=== PATIENT | male | born 1965 | race Asian ===

== ENCOUNTER 2018-02-15 23:26 | Inpatient (IN) | payer SELFPAY ==
[2018-02-16] MEDS ORDERED: Thiamine IV* 100 MG, Folic Acid IV* 1 MG, Multiple Vitamin IV ADULT* 10 ML in NS 0.9% 1... IV ONE (00:27)
[2018-02-16] MEDS ORDERED: LORazepam INJ* 2 MG/ML 1 ML VIAL IV PUSH ONE ×2 (00:27→02:40)
[2018-02-16] MEDS ORDERED: NS 0.9% 1000 ML* 1,000 ML IV ONE (00:27)
[2018-02-16] MEDS ORDERED: Tetan/Diph/Pertus SYR(Tdap)* 0.5 ML SYR(BOOSTRIX) use SYR IM ONE (00:29)
--- NOTE | 2018-02-16 00:30 | ED ---
Altered Mental Status - HPI Summary HPI Summary: The pt is a 52 year old M presenting to the ED with a chief complaint of altered mental status. The pt only knows his name. Per family, he is going through alcohol withdrawal as of 2 weeks ago and has been confused for 1 week now. He has drank every day for 14+ years. No vomiting or medications. The pt has foot pain. - History Of Current Complaint Chief Complaint: EDAltMentalStatus Stated Complaint: ALCOHOL WITHDRAWL Time Seen by Provider: 02/16/18 00:02 Hx Obtained From: Patient Hx From Patient Unobtainable Due To: Altered Mental Status Onset/Duration: Still Present, Gradually Timing: Constant, Lasting Days - 1 wk ago Severity Initially: Moderate Severity Currently: Moderate Character: Confusion Aggravating Factor(s): Other - alcohol withdrawal Alleviating Factor(s): Nothing - Allergies/Home Medications Allergies/Adverse Reactions: Allergies Allergy/AdvReac Type Severity Reaction Status Date / Time No Known Allergies Allergy Verified 02/15/18 23:54 PMH/Surg Hx/FS Hx/Imm Hx Previously Healthy: Yes Endocrine/Hematology History: Denies: Hx Diabetes Cardiovascular History: Denies: Hx Hypertension Infectious Disease History: Unable to Obtain/Confirm Infectious Disease History: Denies: Traveled Outside the [place] in Last 30 Days - Family History Known Family History: Negative: Renal Disease - Social History Alcohol Use: alcohol abuse Alcohol Amount: every day for 14+ yrs (since 2003) Substance Use Type: Reports: None Review of Systems Negative: Fever Neurological: Other - confusion, tremors All Other Systems Reviewed And Are Negative: Yes Physical Exam - Summary Physical Exam Summary: VITAL SIGNS: Reviewed. GENERAL: Patient is a well-developed and nourished male who is lying comfortable in the stretcher. Patient is not in any acute respiratory distress HEAD AND FACE: No signs of trauma. No ecchymosis, hematomas or skull depressions. No sinus tenderness. EYES: PERRLA, EOMI x 2, No injected conjunctiva, no nystagmus. EARS: Hearing grossly intact. Ear canals and tympanic membranes are within normal limits. MOUTH: Oropharynx within normal limits. NECK: Supple, trachea is midline, no adenopathy, no JVD, no carotid bruit, no c- spine tenderness, neck with full ROM. CHEST: Symmetric, no tenderness at palpation LUNGS: Clear to auscultation bilaterally. No wheezing or crackles. CVS: Regular rate and rhythm, S1 and S2 present, no murmurs or gallops appreciated. ABDOMEN: Soft, non-tender. No signs of distention. No rebound no guarding, and no masses palpated. Bowel sounds are normal. EXTREMITIES: FROM in all major joints, no edema, no cyanosis or clubbing. Laceration over distal R second toe which seems more than 24 hours old. NEURO: The pt only knows his name and has tremors of the outstretched hands. SKIN: Dry and warm. The pt has clubbing of his bilateral fingernails. GCS: 15 Triage Information Reviewed: Yes Vital Signs On Initial Exam: Initial Vitals Temp Pulse Resp BP Pulse Ox 99.5 F 95 20 120/75 98 02/15/18 23:45 02/15/18 23:45 02/15/18 23:45 02/15/18 23:45 02/15/18 23:45 Vital Signs Reviewed: Yes Diagnostics - Vital Signs Vital Signs Temp Pulse Resp BP Pulse Ox 02/15/18 23:45 99.5 F 95 20 120/75 98 - Laboratory Result Diagrams: 02/16/18 00:36 02/16/18 00:36 Lab Statement: Any lab studies that have been ordered have been reviewed, and results considered in the medical decision making process. - CT Brain CT CT Interpretation Completed By: Radiologist Summary of CT Findings: No acute intracranial findings. ED physician has reviewed this report. - EKG 0053 Cardiac Rate: NL - 65bpm EKG Rhythm: Sinus Rhythm ST Segment: Non-Specific Ectopy: None Altered Mental Statu Course/Dx - Course Course Of Treatment: The pt is a 52 y/o M presenting to the ED with AMS. Per family, he drank every day for 14+ years and stopped cold turkey about 2 wks ago. His confusion/withdrawal symptoms have been going on for about 1 wk. - Diagnoses Provider Diagnoses: Alcohol withdrawal Discharge - Sign-Out/Discharge Documenting (check all that apply): Patient Departure - Discharge Plan Condition: Critical Disposition: ADMITTED TO [facility] - Billing Disposition and Condition Condition: CRITICAL Disposition: Admitted to [facility] - Attestation Statements Document Initiated by Scribe: Yes Documenting Scribe: Tamela Mendoza Provider For Whom Scribe is Documenting (Include Credential): Hieu Wynn MD. Scribe Attestation: Tamela Garcia, scribed for Hieu Wynn MD. on 02/16/18 at 0610. Scribe Documentation Reviewed: Yes Provider Attestation: The documentation as recorded by the [email or web address] accurately reflects the service I personally performed and the decisions made by Hieu porter MD. Consult Consult: 0130 - Contacted hospitalist about pt admission to [facility]. Pt will be admitted with a diagnosis of alcohol withdrawal.
[2018-02-16 00:42] LABS: ABS Basophils 0.1 10^3/ul (0-0.2); ABS Eosinophils 0.2 10^3/ul (0-0.6); ABS Lymphocytes 1.6 10^3/ul (1.0-4.8); ABS Monocytes 0.6 10^3/ul (0-0.8); ABS Neutrophils 3.1 10^3/ul (1.5-7.7); ABS Nucleated RBC 0 10^3/ul; Eosinophil % 2.8 % (0-6); Hematocrit 31 % (42-52); Hemoglobin 10.2 g/dl (14.0-18.0); Lymphocyte % 28.9 % (25-47); Mean Corpuscular HGB Conc 33 g/dl (31-36); Mean Corpuscular Hemoglobin 28 pg (27-31); Mean Corpuscular Volume 85 fL (80-94); Mean Platelet Volume 9.2 fL (7.4-10.4); Nucleated Red Blood Cells % 0.1; Platelet Count 106 10^3/ul (150-450); Red Blood Count 3.61 10^6/ul (4.00-5.40); Red Cell Distribution Width 13 % (10.5-15); White Blood Count 5.5 10^3/ul (3.5-10.8)
[2018-02-16 00:58] LABS: EGFR Non-African American 104.5 (>60)
[2018-02-16] MEDS ORDERED: Magnesium Sulfate 2 GM IV* 2 GM/50 ML BAG IVPB ONE ×2 (01:41→13:35)
[2018-02-16] MEDS ORDERED: Potassium Chloride LIQUID* 20 MEQ PACKET PO ONE (01:41)
[2018-02-16] MEDS ORDERED: Thiamine IV* 100 MG/ML 2 ML VIAL IM ONE (02:27)
--- NOTE | 2018-02-16 02:37 | ADMNOTE ---
Subjective Date of Service: 02/16/18 Interval History: code status full this is admission h/p source info sister both pt and sister are poor historians hpi this is a 52 yr old male with hx of chronic etoh dep about 24 oz cans times 10-12 cans daily was brought in by family due to worsening mental status for the past 2.5 days. pt has been drinking this amount since age 18 but decided to quit etoh one week ago. this food writer could not get any further hx from pt due to altered ms but sister could not further give pt's hx. pt was given multiple doses of benzo for his etoh withdraw but still very agitated --- > he uriated on the the floor despite of benzo. temp wrist restraint was placed due to agitation. prasedex drip was started due to his agitation after benzo was given. pt got heavy doses of benzo but still withdrawing from etoh phx etoh dep quantity as in hpi cig smoker 1 ppd pshx denied social cig etoh as above no ivda fhx sister denied Review of Systems - Measurements Intake and Output: Intake and Output Last 24 Hours 02/13/18 02/14/18 02/15/18 02/16/18 06:59 06:59 06:59 06:59 Weight 120 lb - Review of Systems General Comments: unable due to ams and agitation Objective Active Medications: Folic Acid (Folvite Tab*) 1 mg PO DAILY [facility] Heparin Sodium (Porcine) (Heparin Vial(*)) 5,000 units SUBCUT Q8HR [facility] Magnesium Sulfate (Magnesium Sulfate 2 Gm Iv*) 2 gm in 50 mls @ 50 mls/hr IVPB ONCE ONE Stop: 02/16/18 02:40 Last Admin: 02/16/18 02:00 Dose: 50 mls/hr Sodium Chloride (Ns 0.9% 1000 Ml*) 1,000 mls @ 125 mls/hr IV PER RATE [facility] Lorazepam (Ativan Inj*) 0 - 2.5 mg IV PUSH .PER [facility] PROTOCOL [facility]; Protocol Multivitamins/Minerals (Theragran/Minerals Tab*) 1 tab PO DAILY [facility] Thiamine HCl (Vitamin B-1 Tab*) 100 mg PO DAILY [facility] Vital Signs - 8 hr 02/15/18 02/16/18 23:45 01:38 Temperature 99.5 F Pulse Rate 95 Respiratory 20 22 Rate Blood Pressure 120/75 (mmHg) O2 Sat by Pulse 98 Oximetry Oxygen Devices in Use Now: Nasal Cannula Appearance: very agitated Eyes: No Scleral Icterus, PERRLA Ears/Nose/Mouth/Throat: - - oral mucosa dry unable to visulized oral cavity Neck: NL Appearance and Movements; NL JVP, Trachea Midline, No Thyroid Enlargement, Masses Respiratory: Symmetrical Chest Expansion and Respiratory Effort, Clear to Auscultation Cardiovascular: NL Sounds; No Murmurs; No JVD Abdominal: NL Sounds; No Tenderness; No Distention Skin: No Rash or Ulcers Neurological: - - agitation later sedated with prasedex and benzo unable to appreciate Result Diagrams: 02/16/18 06:17 02/16/18 00:36 EKG Data: ns no acute st t changes Assess/Plan/Problems-Billing Assessment: this is a 52 yr old male with hx of etoh dep presented to er after he quit etoh one week ago with acute ms change his intial wbc was neg as well as his head ct - Patient Problems (1) Altered mental state Current Visit: Yes Status: Acute Code(s): R41.82 - ALTERED MENTAL STATUS, UNSPECIFIED SNOMED Code(s): 236099614 Comment: could be due to etoh withdraw but ammonia is elevatd will admit to icu for prasedex drip (2) ETOH abuse Current Visit: Yes Status: Acute Code(s): F10.10 - ALCOHOL ABUSE, UNCOMPLICATED SNOMED Code(s): 10711548 Comment: [facility] protocol thiamine (3) Withdrawal symptoms, alcohol Current Visit: Yes Status: Acute Code(s): F10.239 - ALCOHOL DEPENDENCE WITH WITHDRAWAL, UNSPECIFIED SNOMED Code(s): 844610176 Comment: [facility] protocol with ativan + prasedex drip icu consult in am (4) Cigarette smoker Current Visit: Yes Status: Acute Code(s): F17.210 - NICOTINE DEPENDENCE, CIGARETTES, UNCOMPLICATED SNOMED Code(s): 35203443 Comment: supportive care (5) Increased ammonia level Current Visit: Yes Status: Acute Code(s): R79.89 - OTHER SPECIFIED ABNORMAL FINDINGS OF BLOOD CHEMISTRY SNOMED Code(s): 282636025 (6) Chronic anemia Current Visit: Yes Status: Acute Code(s): D64.9 - ANEMIA, UNSPECIFIED SNOMED Code(s): 178946684 Comment: consider lacutlose either ng vs per rectum (7) Anemia, chronic disease Current Visit: Yes Status: Acute Code(s): D63.8 - ANEMIA IN OTHER CHRONIC DISEASES CLASSIFIED ELSEWHERE SNOMED Code(s): 728751121 Comment: stable no aucte st t elevation moniter (8) Electrolyte abnormality Current Visit: Yes Status: Acute Code(s): E87.8 - OTH DISORDERS OF ELECTROLYTE AND FLUID BALANCE, NEC SNOMED Code(s): 582246479 Comment: supplemen as tolerated
[2018-02-16] MEDS ORDERED: LORazepam INJ* 2 MG/ML 1 ML VIAL ONE (02:40)
[2018-02-16] MEDS ORDERED: Diazepam SYRINGE* 5 MG/ML 2 ML SYRINGE (10 MG total) IV ONE (02:40)
[2018-02-16] MEDS ORDERED: Diazepam INJ (NF) 5 MG/ML 10 ML VIAL (50 MG TOTAL) IV ONE (03:30)
[2018-02-16] MEDS: NS 0.9% 1000 ML* 1,000 ML IV SCH ×3 (03:59→13:48)
[2018-02-16] MEDS ORDERED: Dexmedetomidine* 400 MCG in NS 0.9% 100 ML* 96 ML IVPB SCH (04:00)
[2018-02-16] MEDS: LORazepam INJ* 2 MG/ML 1 ML VIAL IV PUSH SCH ×3 (04:34→10:06)
[2018-02-16] MEDS: Heparin VIAL(*) 5000 UNITS/ML VIAL (FIVE THOUSAND) SUBCUT SCH ×3 (06:08→23:52)
[2018-02-16 06:36] LABS: ABS Basophils 0.1 10^3/ul (0-0.2); ABS Eosinophils 0.1 10^3/ul (0-0.6); ABS Lymphocytes 1.6 10^3/ul (1.0-4.8); ABS Monocytes 0.5 10^3/ul (0-0.8); ABS Neutrophils 2.4 10^3/ul (1.5-7.7); ABS Nucleated RBC 0 10^3/ul; Eosinophil % 2.8 % (0-6); Hematocrit 35 % (42-52); Hemoglobin 11.3 g/dl (14.0-18.0); Lymphocyte % 33.1 % (25-47); Mean Corpuscular HGB Conc 32 g/dl (31-36); Mean Corpuscular Hemoglobin 28 pg (27-31); Mean Corpuscular Volume 86 fL (80-94); Mean Platelet Volume 9.5 fL (7.4-10.4); Nucleated Red Blood Cells % 0.1; Platelet Count 113 10^3/ul (150-450); Red Blood Count 4.13 10^6/ul (4.00-5.40); Red Cell Distribution Width 13 % (10.5-15); White Blood Count 4.8 10^3/ul (3.5-10.8)
[2018-02-16] MEDS ORDERED: Atropine SYRINGE* 0.1 MG/ML 10 ML SYRINGE (1 MG) ONE (07:29)
[2018-02-16] MEDS ORDERED: Thiamine IV 100 MG, Folic Acid IV* 1 MG, Multiple Vitamin IV ADULT* 10 ML in D5NS 0.9% ... IV ONE (10:30)
[2018-02-16] MEDS: Folic Acid TAB* 1 MG PO SCH (10:35)
[2018-02-16] MEDS: Thiamine TAB* 100 MG TAB PO SCH (10:35)
[2018-02-16] MEDS: KCL 20 MEQ/100 ML IVPREMIX* 20 MEQ/100 ML BAG IV SCH ×2 (10:35→12:54)
[2018-02-16] MEDS: Multivitamins/Minerals TAB PO SCH (10:35)
--- NOTE | 2018-02-16 22:15 | CONS ---
CONSULTATION REPORT: DATE OF CONSULT: 02/16/18 REQUESTING PHYSICIAN: Shaneka Lyons MD REASON FOR CONSULT: Alcohol withdrawal and bradycardia. HISTORY OF PRESENT ILLNESS: The patient is unable to provide any history at this time. He has significant history of chronic alcohol usage, has been drinking about 24-ounce cans 10 to 12 cans daily per family. He has been found to be having altered mental status for past 2 to 3 days prior to evaluation. He was brought in by the family for evaluation of mental status changes. The patient is not able to provide any history at this time. He has not seen physician for a very long time. He returned from [facility] few years ago, was found to be intoxicated in the flight and was momentarily held in [place] where he landed first and was treated for ETOH withdrawal. He was also found to have cirrhosis and varices at that time. He did not have any primary care evaluations since that time. He continues to drink regularly. The patient was significantly agitated in the emergency room. He was given benzos with no benefit. He was subsequently placed on Precedex and was brought in to the ICU. The patient was noted to have episodes of bradycardia and sinus pauses while in the ICU. Precedex was stopped. The patient's mental status improved. He has remained more cooperative. He has been receiving Ativan as per [facility] protocol. The patient also noted to have hyponatremia and hypokalemia, which were repleted. He was also noted to low magnesium. He was given thiamine folate IV while in the ICU. Chest x-ray performed in the ICU was personally reviewed by me, no acute airspace opacities noted. PAST MEDICAL HISTORY: Chronic ETOH use, chronic tobacco abuse. PAST SURGICAL HISTORY: Denied. FAMILY HISTORY: Reviewed. Noncontributory to current complaint. SOCIAL HISTORY: Alcohol and ETOH abuse. No IV drug abuse. REVIEW OF SYSTEMS: Unable to obtain given patient's acute condition. PHYSICAL EXAM: Vital Signs: Temperature 97.3, pulse 57 beats per minute, respiratory rate 14 per minute. O2 sat 98% on room air, blood pressure 127/84. HEENT: Pupils equal and reactive to light. Mucous membranes moist. Lungs: Diminished air entry bilaterally. No wheezes. Cardiovascular: S1, S2 present. Bradycardic. Abdomen: Soft, nontender, nondistended. Bowel sounds present. Extremities: Normal range of motion. DIAGNOSTIC STUDIES/LAB DATA: WBC count 4.8, hemoglobin 11.3, hematocrit 35, platelet count 113. Sodium 134, potassium 3.1, chloride 102, bicarb 25, BUN 16 , creatinine 0.7, ammonia elevated at 71. Chest x-ray- As described in HPI EKG was personally reviewed, evidence of sinus rhythm with sinus pauses in between. IMPRESSION AND RECOMMENDATIONS: 52-year-old male with chronic alcohol use admitted with withdrawal. 1. Acute alcohol withdrawal. 2. Sinus pauses secondary to Precedex. 3. Altered mental status. 4. Hypokalemia, hypomagnesemia and hyponatremia secondary to poor intake and dehydration. The patient with slightly improved mental status. Family at bedside. The patient received thiamine folate and multivitamins. He is receiving Ativan [facility]. Precedex is discontinued. Cardiology was consulted for recommendations. Continue with [facility] protocol. Monitor closely for alcohol withdrawal. The patient is stable to be transferred to regular medical floor. Discussed with bedside RN, family. Discussed with Dr. Nunez. [id number]/CPS #: [id number] RANDAL
--- NOTE | 2018-02-16 22:49 | CONS ---
CARDIOLOGY CONSULTATION: DATE OF CONSULT: 02/16/18. REFERRAL PROVIDER: Dr. Villagomez. REASON FOR CARDIOLOGY CONSULTATION: Sinus pauses. HISTORY OF PRESENT ILLNESS: The patient is currently sedated so I am unable to obtain a meaningful history. He has alcohol dependence and was apparently brought to the hospital with alcohol withdrawal after he had stopped drinking alcohol one week ago. He was placed on benzodiazepines, but because of continued agitation, he was placed on Precedex. He developed some sinus pauses less than 2 seconds, so the Precedex had been appropriately stopped. No symptoms reported. PAST MEDICAL HISTORY: Significant for alcoholism and the patient has apparently been drinking large amounts of alcohol since the age of 18. He also smokes one pack of cigarettes per day. MEDICATIONS: No outpatient medications reported. ALLERGIES: None reported; however, I would list PRECEDEX as an allergy given his predeliction for developing first-degree AV block on his baseline EKG and sinus pauses on telemetry. Currently he is in sinus rhythm. FAMILY HISTORY: Unable to obtain as the patient is quite sedated. SOCIAL HISTORY: Unable to obtain as the patient is quite sedated other than as above. REVIEW OF SYSTEMS: Unable to obtain as the patient is quite sedated. PHYSICAL EXAM: On general exam, he is in no acute distress and his sedated. Height 5 feet 4 inches, weight 121 pounds. Pulse is 57, blood pressure 127/84, O2 saturation 98. HEENT: Shows the cranium is normocephalic and atraumatic. He has moist mucosal membranes. Neck veins are not distended. There are no carotid bruits. Visible skin warm and perfused. No significant kyphoscoliosis on recumbent back exam. Lungs are clear to auscultation anteriorly. No wheezes or rales. Cardiac Exam: S1, S2. Regular rate. No significant murmurs , rubs or gallops. PMI is not displaced. Abdomen: Soft, nondistended, appears benign. Extremities: Without significant edema. Pulses appear grossly intact. DIAGNOSTIC STUDIES/LAB DATA: A 12-led EKG reviewed performed on 02/16/18, which shows sinus rhythm at 77 beats per minute with LA, first-degree AV block, right ely axis. When compared to prior EKG completed 02/16/18 at 00:53 i.e. roughly 7 hours prior, PVC, sinus rhythm with early repolarization pattern noted , but no first degree AV block. Note; the patient had Precedex in the interim. Sodium 134, potassium 3.1, chloride 102, bicarbonate 25, BUN 16, creatinine 0.78. Magnesium 1.8. ALT 76, AST 110, ammonia 71, CK 745, troponin 0.01 followed by 0, TSH 0.91. IMPRESSION: Mr. Lurdes Willams is a 52-year-old gentleman admitted with alcohol withdrawal. He developed sinus pauses, less than 2 seconds, which are not significant as well as first-degree AV block due to his prior Precedex drip use. I agree with Precedex discontinuation. RECOMMENDATIONS: 1. Agree with discontinuing Precedex and avoid AV luis manuel blockade agents. 2. There is no indication for pacemaker. No further cardiac evaluation needed at this time. 3. Keep magnesium greater than or equal to 2, potassium greater than or equal to 4. 4. Other management as per Critical Care Medicine Service. I have discussed the case with Dr. Villagomez. Dr. Villagomez, many thanks for asking me to participate in cardiovascular consultative care of Mr. Lurdes Willams. Please do not hesitate to contact me if you have any questions or concerns regarding the patient's cardiovascular consultative care. [id number]/[facility] #: [id number] MTDD
[2018-02-17] MEDS: Heparin VIAL(*) 5000 UNITS/ML VIAL (FIVE THOUSAND) SUBCUT SCH ×3 (07:00→21:45)
[2018-02-17] MEDS: Thiamine TAB* 100 MG TAB PO SCH (09:16)
[2018-02-17] MEDS: Multivitamins/Minerals TAB PO SCH (09:16)
[2018-02-17] MEDS: Folic Acid TAB* 1 MG PO SCH (09:16)
--- NOTE | 2018-02-17 15:49 | PN ---
Subjective Date of Service: 02/17/18 Interval History: Pt seen and examined. Meds and labs reviewed. CC: N/A ROS: Denied CAO/dizziness, F/C, N/V, CP, SOB, increased cough, sputum production , abd pain, diarrhea, constipation, dysuria, myalgias, arthralgias, throat pain , and new skin lesions. The rest of the 14 point ROS are unremarkable. PHYSICAL EXAM: GEN APPEARANCE: Awake, not in acute distress HEENT: NC/AT, PERRLA, moist oral mucosa, (-) throat erythema NECK: Soft, supple, (-) cervical LAD, (-)JVD HEART: S1S2 WNL, RRR, No MRG CHEST: CTA, BL, GAE, No W/R/R ABD: Soft, ND/NT, NABS 4x Q EXT: No C/C/E SKIN: Warm to touch PSYCH: No active psychosis, hallucinations, depression, SI/HI Objective Active Medications: Folic Acid (Folvite Tab*) 1 mg PO DAILY [facility] Last Admin: 02/17/18 09:16 Dose: 1 mg Heparin Sodium (Porcine) (Heparin Vial(*)) 5,000 units SUBCUT Q8HR [facility] Last Admin: 02/17/18 13:44 Dose: 5,000 units Sodium Chloride (Ns 0.9% 1000 Ml*) 1,000 mls @ 125 mls/hr IV PER RATE [facility] Last Admin: 02/16/18 13:48 Dose: 125 mls/hr Lorazepam (Ativan Inj*) 0 - 2.5 mg IV PUSH .PER [facility] PROTOCOL [facility]; Protocol Last Admin: 02/16/18 10:06 Dose: 1.5 mg Multivitamins/Minerals (Theragran/Minerals Tab*) 1 tab PO DAILY [facility] Last Admin: 02/17/18 09:16 Dose: 1 tab Nicotine (Nicotine Inhaler*) 10 mg INH Q2H PRN PRN Reason: CRAVING Thiamine HCl (Vitamin B-1 Tab*) 100 mg PO DAILY [facility] Last Admin: 02/17/18 09:16 Dose: 100 mg Vital Signs - 8 hr 02/17/18 02/17/18 02/17/18 07:55 08:00 10:00 Temperature 98.2 F 97.6 F Pulse Rate 47 66 Respiratory 18 15 18 Rate Blood Pressure 151/82 159/83 (mmHg) O2 Sat by Pulse 100 100 100 Oximetry 02/17/18 02/17/18 12:07 13:46 Temperature 98.8 F 98.2 F Pulse Rate 55 55 Respiratory Rate Blood Pressure 166/82 141/75 (mmHg) O2 Sat by Pulse 100 100 Oximetry Oxygen Devices in Use Now: None Result Diagrams: 02/16/18 06:17 02/16/18 00:36 Microbiology and Other Data: Microbiology 02/16/18 04:38 Nasal Screen MRSA (PCR) - Final Nasal Mrsa Not Detected EKG Data: ns no acute st t changes Assess/Plan/Problems-Billing Assessment: this is a 52 yr old male with hx of etoh dep presented to er after he quit etoh one week ago with acute ms change his intial wbc was neg as well as his head ct - Patient Problems (1) Withdrawal symptoms, alcohol Current Visit: Yes Status: Acute Code(s): F10.239 - ALCOHOL DEPENDENCE WITH WITHDRAWAL, UNSPECIFIED SNOMED Code(s): 017287497 Comment: -Continue [place] protocol -Continue Thiamine supplementations (2) Thrombocytopenia Current Visit: Yes Status: Acute Code(s): D69.6 - THROMBOCYTOPENIA, UNSPECIFIED SNOMED Code(s): 603455373 Comment: -Together with mildly elevated ammonia, could be from acute ETOH intoxication but at high risk for cirrhosis or advanced fibrosis -Will obtain abd U/S in AM to eval -If above equivocal may benefit from Fibrosure test as outpatient (3) Tobacco abuse Current Visit: Yes Status: Acute Code(s): Z72.0 - TOBACCO USE SNOMED Code( s): 193656319 Comment: -Advised lifestyle modifications -Will place in Nicotine INH PRN for now and if needed may add Nicotine patch (4) DVT prophylaxis Current Visit: Yes Status: Acute Code(s): RCG9286 - SNOMED Code(s): 529934869 Comment: -Continue Heparin SQq8H Status and Disposition: -As above
[2018-02-17] MEDS: Nicotine Inhaler* 10 MG AMP INH PRN ×2 (15:55→20:02)
[2018-02-17] MEDS ORDERED: Mouth Piece, Nicotine* 1 EACH CARTRIDGE INH ONE (16:00)
[2018-02-17] MEDS: NS 0.9% 1000 ML* 1,000 ML IV SCH (17:02)
[2018-02-18] MEDS: NS 0.9% 1000 ML* 1,000 ML IV SCH ×2 (01:10→10:11)
[2018-02-18] MEDS: Heparin VIAL(*) 5000 UNITS/ML VIAL (FIVE THOUSAND) SUBCUT SCH ×2 (06:56→14:45)
[2018-02-18 08:21] LABS: ABS Basophils 0.1 10^3/ul (0-0.2); ABS Eosinophils 0.1 10^3/ul (0-0.6); ABS Lymphocytes 1.8 10^3/ul (1.0-4.8); ABS Monocytes 0.7 10^3/ul (0-0.8); ABS Neutrophils 1.6 10^3/ul (1.5-7.7); ABS Nucleated RBC 0 10^3/ul; Eosinophil % 2.5 % (0-6); Hematocrit 36 % (42-52); Hemoglobin 11.5 g/dl (14.0-18.0); Lymphocyte % 40.5 % (25-47); Mean Corpuscular HGB Conc 32 g/dl (31-36); Mean Corpuscular Hemoglobin 27 pg (27-31); Mean Corpuscular Volume 86 fL (80-94); Mean Platelet Volume 8.7 fL (7.4-10.4); Nucleated Red Blood Cells % 0.2; Platelet Count 168 10^3/ul (150-450); Red Blood Count 4.19 10^6/ul (4.00-5.40); Red Cell Distribution Width 13 % (10.5-15); White Blood Count 4.3 10^3/ul (3.5-10.8)
[2018-02-18] MEDS: Thiamine TAB* 100 MG TAB PO SCH (08:32)
[2018-02-18] MEDS: Multivitamins/Minerals TAB PO SCH (08:32)
[2018-02-18] MEDS: Folic Acid TAB* 1 MG PO SCH (08:32)
[2018-02-18 08:42] LABS: EGFR Non-African American 114.6 (>60)
[2018-02-18 14:03] VITALS: BP 144/77
[2018-02-18] MEDS ORDERED: Magnesium Sulfate 2 GM IV* 2 GM/50 ML BAG IVPB ONE (14:30)
--- NOTE | 2018-02-19 08:01 | DS ---
DISCHARGE SUMMARY: DATE OF ADMISSION: 02/16/18 DATE OF DISCHARGE: 02/18/18 PRIMARY CARE PROVIDER: None. Please note that at discharge patient was referred to insurance navigator to apply for Medicaid. DISCHARGE DIAGNOSES: 1. Altered mental status due to delirium. 2. Liver function test elevation due to mild alcoholic hepatitis. 3. Hypomagnesemia. MEDICATIONS AT DISCHARGE: 1. Mag ox 400 mg daily. 2. Thiamine 100 mg 3. Folic acid 1 mg daily. LABORATORY DATA AND STUDIES PERFORMED DURING THE HOSPITAL STAY: On 02/18/18, sodium of 138, potassium 4.4, chloride 107, carbon dioxide 37, BUN 10, creatinine 0.7. Liver function tests showed an AST of 76, ALT of 95, alkaline phosphatase of 54. CBC: White blood cell count 4.3, hemoglobin 11.5, hematocrit 36, and platelets 168. Abdominal ultrasound obtained on 02/17/18. Impression, "no sonographic evidence of hepatic steatosis, cirrhosis or hepatocellular carcinoma. Small volume ascites related to underlying liver disease." CONSULTATION DURING THE HOSPITAL STAY: Included Dr. Jean-Baptiste for bradycardia related to Precedex. The patient was also consulted by Dr. Villagomez, the manager desktop, due to Precedex use when patient was admitted. HOSPITALIZATION COURSE: Mr. Willams is a 52-year-old male, originally from [facility] , who has history of alcohol abuse and who presented to the hospital withdrawing and agitated. He was admitted initially to the intensive care unit for Precedex infusion. During the infusion, he developed bradycardia and Dr. Jean-Baptiste saw the patient in consultation. Precedex was discontinued and patient's bradycardia resolved. Over the course of the next couple of days, patient did well on Ativan withdrawal protocol and by the time of discharge, he required no further Ativan treatment. He was seen by a social worker health services and he was noted to be well- connected with social worker health services from local [facility] [place] services with whom he is going to follow at discharge. PHYSICAL EXAM AT THE TIME OF DISCHARGE: Blood pressure 144/77, heart rate 54 and regular, respiratory rate 17, oxygen saturation 100% on room air, temperature 97.9. General: A very pleasant 52-year-old male with limited communication in Chinese, but alert and oriented to self, his age, and that he is in the hospital. The patient is not in acute distress. HEENT: Head atraumatic normocephalic. Eyes: Pupils are equal and reactive to light and accommodation. Oropharynx clear, mucosa moist. Neck: Supple. No JVD. No bruits bilaterally. Cardiovascular: Regular rate and rhythm. No murmur. Respiratory: Clear to auscultation bilaterally. Abdomen: Soft and nontender. Bowel sounds are present in all 4 quadrants. Extremities: There is no edema. Pulses +2 bilaterally. No clubbing or cyanosis. Neuro Evaluation: Speech clear. Cranial nerves II through XII are grossly intact. Motor strength is 5/5 bilaterally. Please note that this is a short summary of the patient's hospitalization. Please refer to further medical records for full details. TIME SPENT: Approximately 32 minutes was spent on the patient's discharge. [id number]/[facility]PS #: [id number] [facility]
== END 2018-02-18 16:00 | disposition home or self-care (01) | DRG 897 ==
LOC: ED 23:26 → MED 02-16 02:23 → ICU 02-16 03:04 → MED 02-16 13:59
PROVIDERS: ADMIT Internal Medicine; ATTEND Internal Medicine
DX: F10.231 Alcohol dependence with withdrawal delirium (principal); E87.1 Hypo-osmolality and hyponatremia; D69.6 Thrombocytopenia, unspecified; E83.42 Hypomagnesemia; K70.11 Alcoholic hepatitis with ascites; Y90.0 Blood alcohol level of less than 20 mg/100 ml; F17.210 Nicotine dependence, cigarettes, uncomplicated; R94.5 Abnormal results of liver function studies; D53.9 Nutritional anemia, unspecified; I44.0 Atrioventricular block, first degree; T50.995A Adverse effect of other drugs, medicaments and biological substances, initial encounter; Y92.230 Patient room in hospital as the place of occurrence of the external cause; E87.6 Hypokalemia; Z79.899 Other long term (current) drug therapy
CPT/HCPCS: 36415; 70450; 71045; 76700; 80053; 80320; 82140; 82550; 83735; 84100; 84443; 84484; 85025; 87641; 90715; 93005; 96374; 99285; A9270-GY; G0480; J0461; J1644; J2060; J3360; J3411; J3475; J3480

== ENCOUNTER 2018-04-08 11:12 | Observation (INO) | payer MEDICAID, OTHER ==
[2018-04-08 12:14] LABS: ABS Basophils 0.1 10^3/ul (0-0.2); ABS Eosinophils 0.1 10^3/ul (0-0.6); ABS Monocytes 0.5 10^3/ul (0-0.8); ABS Neutrophils 5.2 10^3/ul (1.5-7.7); ABS Nucleated RBC 0 10^3/ul; Eosinophil % 1.5 %; Hematocrit 43 % (42-52); Hemoglobin 14.1 g/dl (14.0-18.0); Lymphocyte % 25.8 %; Mean Corpuscular HGB Conc 33 g/dl (31-36); Mean Corpuscular Hemoglobin 27 pg (27-31); Mean Corpuscular Volume 82 fL (80-94); Mean Platelet Volume 7.8 fL (7.4-10.4); Nucleated Red Blood Cells % 0.1; Platelet Count 293 10^3/ul (150-450); Red Blood Count 5.22 10^6/ul (4.00-5.40); Red Cell Distribution Width 13 % (10.5-15); White Blood Count 7.9 10^3/ul (3.5-10.8)
[2018-04-08 12:33] LABS: Urine Appearance Cloudy; Urine Bacteria Absent (Absent); Urine Bilirubin Negative (Negative); Urine Blood Negative (Negative); Urine Color Amber; Urine Glucose Negative (Negative); Urine Ketones Negative (Negative); Urine Nitrite Negative (Negative); Urine Protein 1+(30 mg/dL) (Negative); Urine Red Blood Cell Trace(0-2/hpf) (Absent); Urine Specific Gravity 1.024 (1.010-1.030); Urine Urobilinogen Positive (Negative); Urine White Blood Cell Trace(0-5/hpf) (Absent)
[2018-04-08 12:34] LABS: ALT 30 U/L (7-52); AST 26 U/L (13-39); Albumin 4.6 g/dL (3.2-5.2); Albumin/Globulin Ratio 1.4 (1-3); Alkaline Phosphatase 61 U/L (34-104); Anion Gap 9 mmol/L (2-11); BUN/Creatinine Ratio 16.1 (8-20); Blood Urea Nitrogen 15 mg/dL (6-24); CO2 Carbon Dioxide 22 mmol/L (22-32); Calcium 9.8 mg/dL (8.6-10.3); Chloride 103 mmol/L (101-111); EGFR Non-African American 85.3 (>60); Globulin 3.2 g/dL (2-4); Glucose 116 mg/dL (70-100); Potassium 4.6 mmol/L (3.5-5.0); Sodium 134 mmol/L (135-145); Total Protein 7.8 g/dL (6.4-8.9)
[2018-04-08 12:43] LABS: Alcohol < 10 mg/dL (<10)
[2018-04-08] MEDS ORDERED: Thiamine IV* 100 MG/ML 2 ML VIAL IV ONE (13:08)
--- NOTE | 2018-04-08 13:55 | ED ---
Altered Mental Status - HPI Summary HPI Summary: This patient is a 52 year old M presenting [place] [facility] accompanied by his family with a cc of confusion. The patient has a history of alcohol abuse and was a heavy beer drinking for the last 14 years. He quit in February of this year and became delirious and experienced tremors. He was seen in the ED and admitted. Currently he is being followed by the [facility] and Dr Campbell has him taking antabuse. Recently the patients family is concerned because he has been having tremors and has been agitated. The family reports that he threw his coat in the garbage yesterday without a cause, he denies this. Yesterday he was also out in his lawn in his underwear and was refusing to come to the ED. The son reports the pt refuses to take his medications and there has not been any recent trauma. The patient is perscribed zoloft as well. When asked if he drinks the patient responds with no, then shortly after asked for a bottle open for a beer. LEVEL 5 CAVEAT: Exam limited due to the patients confusion. - History Of Current Complaint Chief Complaint: EDAltMentalStatus Stated Complaint: CONFUSION Time Seen by Provider: 04/08/18 11:57 Hx Obtained From: Patient, Family/Bail Bondsman Onset/Duration: Still Present Timing: Constant Severity Initially: Moderate Severity Currently: Moderate Character: Confusion - Allergies/Home Medications Allergies/Adverse Reactions: Allergies Allergy/AdvReac Type Severity Reaction Status Date / Time No Known Allergies Allergy Verified 02/15/18 23:54 Home Medications: Home Medications Disulfiram 250 mg PO DAILY 04/08/18 [History Confirmed 04/08/18] Sertraline* [Zoloft*] 50 mg PO DAILY 04/08/18 [History Confirmed 04/08/18] PMH/Surg Hx/FS Hx/Imm Hx Endocrine/Hematology History: Denies: Hx Diabetes Cardiovascular History: Denies: Hx Hypertension Sensory History: Denies: Hx Contacts or Glasses, Hx Hearing Aid Opthamlomology History: Denies: Hx Contacts or Glasses Psychiatric History: Reports: Hx Substance Abuse - ETOH Infectious Disease History: No Infectious Disease History: Denies: Traveled Outside the [place] in Last 30 Days - Family History Known Family History: Negative: Renal Disease - Social History Alcohol Use: Daily Alcohol Amount: detox +1 month Substance Use Type: Reports: None Smoking Status (MU): Current Every Day Smoker Review of Systems - ROS Summary Review of Systems Summary: LEVEL 5 CAVEAT: Exam limited due to the patients confusion. Negative: Fever Skin: Other - tremors Psychological: Other - confusion Positive: Other - agitated. All Other Systems Reviewed And Are Negative: No Physical Exam - Summary Physical Exam Summary: Constitutional: Well-developed, Well-nourished, Alert. (-) Distressed Skin: Warm, Dry HENT: Normocephalic; Atraumatic Eyes: Conjunctiva normal Neck: Musculoskeletal ROM normal neck. (-) JVD, (-) Stridor, (-) Tracheal deviation Cardio: Rhythm regular, rate normal, Heart sounds normal; Intact distal pulses; The pedal pulses are 2+ and symmetric. Radial pulses are 2+ and symmetric. (-) Murmur Pulmonary/Chest wall: Effort normal. (-) Respiratory distress, (-) Wheezes, (-) Rales Abd: Soft, (-) epigastric tenderness, (-) Distension, (-) Guarding, (-) Rebound Musculoskeletal: (-) Edema, he is mildly tremulous on exam. Lymph: (-) Cervical adenopathy Neuro: Alert and confused Triage Information Reviewed: Yes Vital Signs On Initial Exam: Initial Vitals Temp Pulse Resp BP Pulse Ox 97.4 F 105 18 160/107 99 04/08/18 11:13 04/08/18 11:13 04/08/18 11:13 04/08/18 11:13 04/08/18 11:13 Vital Signs Reviewed: Yes - Fide Coma Scale Best Eye Response: 4 - Spontaneous Best Motor Response: 6 - Obeys Commands Best Verbal Response: 4 - Confused Coma Scale Total: 14 Diagnostics - Vital Signs Vital Signs Temp Pulse Resp BP Pulse Ox 04/08/18 13:24 158/99 04/08/18 13:00 16 04/08/18 12:54 20 165/106 04/08/18 12:21 17 146/99 04/08/18 12:00 82 15 97 04/08/18 11:54 81 19 146/99 98 04/08/18 11:53 20 04/08/18 11:13 97.4 F 105 18 160/107 99 - Laboratory Lab Results: Lab Results 04/08/18 04/08/18 04/08/18 Range/Units 12:03 12:03 12:03 WBC 7.9 (3.5-10.8) 10^3/ul RBC 5.22 (4.00-5.40) 10^6/ul Hgb 14.1 (14.0-18.0) g/dl Hct 43 (42-52) % MCV 82 (80-94) fL MCH 27 (27-31) pg MCHC 33 (31-36) g/dl RDW 13 (10.5-15) % Plt Count 293 (150-450) 10^3/ul MPV 7.8 (7.4-10.4) fL Neut % (Auto) 65.5 % Lymph % (Auto) 25.8 % [place] % (Auto) 6.0 % Eos % (Auto) 1.5 % Baso % (Auto) 1.2 % Absolute Neuts (auto) 5.2 (1.5-7.7) 10^3/ul Absolute Lymphs (auto) 2.0 (1.0-4.8) 10^3/ul Absolute Monos (auto) 0.5 (0-0.8) 10^3/ul Absolute Eos (auto) 0.1 (0-0.6) 10^3/ul Absolute Basos (auto) 0.1 (0-0.2) 10^3/ul Absolute Nucleated RBC 0 10^3/ul Nucleated RBC % 0.1 Sodium 134 L (135-145) mmol/L Potassium 4.6 (3.5-5.0) mmol/L Chloride 103 (101-111) mmol/L Carbon Dioxide 22 (22-32) mmol/L Anion Gap 9 (2-11) mmol/L BUN 15 (6-24) mg/dL Creatinine 0.93 (0.67-1.17) mg/dL Est GFR ( Amer) 103.2 (>60) Est GFR (Non-Af Amer) 85.3 (>60) BUN/Creatinine Ratio 16.1 (8-20) Glucose 116 H (70-100) mg/dL Lactic Acid 0.9 (0.5-2.0) mmol/L Calcium 9.8 (8.6-10.3) mg/dL Total Bilirubin 0.80 (0.2-1.0) mg/dL AST 26 (13-39) U/L ALT 30 (7-52) U/L Alkaline Phosphatase 61 (34-104) U/L Troponin I 0.00 (<0.04) ng/mL Total Protein 7.8 (6.4-8.9) g/dL Albumin 4.6 (3.2-5.2) g/dL Globulin 3.2 (2-4) g/dL Albumin/Globulin Ratio 1.4 (1-3) Urine Color Urine Appearance Urine pH (5-9) Ur Specific [place] (1.010-1.030) Urine Protein (Negative) Urine Ketones (Negative) Urine Blood (Negative) Urine Nitrate (Negative) Urine Bilirubin (Negative) Urine Urobilinogen (Negative) Ur Leukocyte Esterase (Negative) Urine WBC (Auto) (Absent) Urine RBC (Auto) (Absent) Ur Squamous Epith Cells (Absent) Urine Bacteria (Absent) Hyaline Casts (Absent) Urine Glucose (Negative) Serum Alcohol < 10 (<10) mg/dL 04/08/18 Range/Units 12:21 WBC (3.5-10.8) 10^3/ul RBC (4.00-5.40) 10^6/ul Hgb (14.0-18.0) g/dl Hct (42-52) % MCV (80-94) fL MCH (27-31) pg MCHC (31-36) g/dl RDW (10.5-15) % Plt Count (150-450) 10^3/ul MPV (7.4-10.4) fL Neut % (Auto) % Lymph % (Auto) % [place] % (Auto) % Eos % (Auto) % Baso % (Auto) % Absolute Neuts (auto) (1.5-7.7) 10^3/ul Absolute Lymphs (auto) (1.0-4.8) 10^3/ul Absolute Monos (auto) (0-0.8) 10^3/ul Absolute Eos (auto) (0-0.6) 10^3/ul Absolute Basos (auto) (0-0.2) 10^3/ul Absolute Nucleated RBC 10^3/ul Nucleated RBC % Sodium (135-145) mmol/L Potassium (3.5-5.0) mmol/L Chloride (101-111) mmol/L Carbon Dioxide (22-32) mmol/L Anion Gap (2-11) mmol/L BUN (6-24) mg/dL Creatinine (0.67-1.17) mg/dL Est GFR ( Amer) (>60) Est GFR (Non-Af Amer) (>60) BUN/Creatinine Ratio (8-20) Glucose (70-100) mg/dL Lactic Acid (0.5-2.0) mmol/L Calcium (8.6-10.3) mg/dL Total Bilirubin (0.2-1.0) mg/dL AST (13-39) U/L ALT (7-52) U/L Alkaline Phosphatase (34-104) U/L Troponin I (<0.04) ng/mL Total Protein (6.4-8.9) g/dL Albumin (3.2-5.2) g/dL Globulin (2-4) g/dL Albumin/Globulin Ratio (1-3) Urine Color [place] Urine Appearance Cloudy Urine pH 5.0 (5-9) Ur Specific [place] 1.024 (1.010-1.030) Urine Protein 1+(30 mg/dl) A (Negative) Urine Ketones Negative (Negative) Urine Blood Negative (Negative) Urine Nitrate Negative (Negative) Urine Bilirubin Negative (Negative) Urine Urobilinogen Positive A (Negative) Ur Leukocyte Esterase Negative (Negative) Urine WBC (Auto) Trace(0-5/hpf) (Absent) Urine RBC (Auto) Trace(0-2/hpf) (Absent) Ur Squamous Epith Cells Present A (Absent) Urine Bacteria Absent (Absent) Hyaline Casts Present A (Absent) Urine Glucose Negative (Negative) Serum Alcohol (<10) mg/dL Result Diagrams: 04/08/18 12:03 04/08/18 12:03 Lab Statement: Any lab studies that have been ordered have been reviewed, and results considered in the medical decision making process. - Radiology CT HEAD Radiology Interpretation Completed By: Radiologist Summary of Radiographic Findings: NO ACUTE INTRACRANIAL PATHOLOGY. ED physician has reviewed this radiology report. - EKG 1211 Cardiac Rate: NL EKG Rhythm: Sinus Rhythm - at 82 BPM Summary of EKG Findings: NO STEMI Altered Mental Statu Course/Dx - Course Assessment/Plan: This patient is a 52 year old M presenting to [facility] accompanied by his family with a cc of confusion. The patient has a history of alcohol abuse and was a heavy beer drinking for the last 14 years. He quit in February of this year and became delirious and experienced tremors. He was seen in the ED and admitted. Currently he is being followed by the [facility] and Dr Campbell has him taking antabuse. Recently the patients family is concerned because he has been having tremors and has been agitated. The family reports that he threw his coat in the garbage yesterday without a cause, he denies this. Yesterday he was also out in his lawn in his underwear and was refusing to come to the ED. The son reports the pt refuses to take his medications and there has not been any recent trauma. When asked if he drinks the patient responds with no, then shortly after asked for a bottle open for a beer. LEVEL 5 CAVEAT: Exam limited due to the patients confusion. Chart reviewed, when he was admitted in February he had a nml HR today it is also normal. Delirium tremors vs alcohol encephalopathy. CT brain reveals, per radiologist, NO ACUTE INTRACRANIAL PATHOLOGY. Bloodwork obtained. In the ED course the patient was given lactulose and thiamine. Patient will be admitted. The patient is agreeable with this plan. - Diagnoses Provider Diagnoses: Alcoholic encephalopathy - Provider Notifications Discussed Care Of Patient With: Lisa Iqbal Time Discussed With Above Provider: 14:36 Instructed by Provider To: Admit As Observation Discharge - Sign-Out/Discharge Documenting (check all that apply): Patient Departure - admitted - Discharge Plan Condition: Fair Disposition: ADMITTED TO [facility] Referrals: Ramon Campbell MD [Primary Care Provider] - - Attestation Statements Document Initiated by Scribe: Yes Documenting Scribe: Glen Isabel Provider For Whom Scribe is Documenting (Include Credential): Casa Chavez MD Scribe Attestation: Glen Garcia , scribed for Casa Chavez MD on 04/08/18 at 1436. Status of Scribe Document: Ready
[2018-04-08] MEDS ORDERED: Thiamine IV 100 MG in NS 0.9% 50 ML Q24H IV ONE (14:00)
[2018-04-08] MEDS ORDERED: Acetaminophen TAB* 325 MG PO PRN (17:03)
[2018-04-08] MEDS: Lactulose* 15 ML UDC PO SCH (20:40)
[2018-04-08] MEDS: Naltrexone TAB* 50 MG TAB PO SCH (20:40)
--- NOTE | 2018-04-08 23:19 | HP ---
CC: Dr. Campbell.* HISTORY AND PHYSICAL: DATE OF ADMISSION: 04/08/18 PROVIDER: Rachna Bonilla NP PRIMARY CARE PROVIDER: Dr. Campbell. ATTENDING PHYSICIAN WHILE IN THE HOSPITAL: Dr. Lisa Iqbal * (dictated by Rachna Bonilla NP). CHIEF COMPLAINT: Confusion. HISTORY OF PRESENT ILLNESS: Mr. Willams is a 52-year-old male with primary language of [place], who presented to the emergency room with his family due to increased confusion x3 days. The patient was interviewed through an quality assurance auditor, language line quality assurance auditor #[id number]. The patient reports that when he takes his sertraline and disulfiram, it makes his feel dizzy, shaky, and increases his confusion. The patient reports that he stopped taking this medication approximately 3 days ago and since then he has been feeling less confused. The family reports that the patient did walk outside in his underwear and was found in the [place] by the police due to his confusion. The patient reports that his confusion started approximately 3 weeks ago when he started his sertraline and disulfiram medications. So the family brought him here for further evaluation. I did speak to his significant other, Raciel Willams on the phone, who reports that she is concerned due to the increased confusion and that is why he was brought to the hospital. She does say that 3 days ago his confusion was worse that has since improved since stopping his medications. She does report she brought him here today because she was concerned that he was no longer taking the medication that was assisting him to stop drinking and was concerned that he would start drinking again, so brought him here so he could be placed on a new medication that would help him not to drink. The patient himself does report that his confusion has improved. He does continue to have some confusion during this interview. He reports that the year is 1999 and he is unable to state his correct date. He is aware that he is in the hospital. He denies any recent fever, chest pain, cough, congestion, or hemoptysis. Denies any nausea, vomiting, diarrhea, abdominal pain, gross hematuria, dysuria, focal weakness, or sensory loss. Denies any dysphagia, arthralgias, myalgias, rashes, lesions, psychosis, or anxiety. While in the emergency room, the patient had routine lab work. He was found to have an ammonia level of 67 and due to the concern of confusion, we were asked to see and evaluate him for admission. PAST MEDICAL HISTORY: Significant for alcohol abuse. PAST SURGICAL HISTORY: Denies any surgical history. HOME MEDICATIONS: 1. Sertraline 50 mg p.o. daily. 2. Folic acid 1 mg p.o. daily. 3. Magnesium oxide 400 mg p.o. daily. 4. Thiamine 100 mg p.o. daily. 5. Disulfiram 250 mg p.o. daily. ALLERGIES: He has no known drug allergies. FAMILY HISTORY: No reported history of coronary artery disease. Unknown history of diabetes. No reported history of cancer. SOCIAL HISTORY: He denies any current alcohol, tobacco, or illicit drug use. The patient currently lives with his mother, sibling, and children. Surrogate decision maker in the event he is unable to make his own decisions is his mom. He is a full code. REVIEW OF SYSTEMS: There has been no documented fever; no chest pain; no cough , hemoptysis, or shortness of breath. Denies any nausea, vomiting, or diarrhea. Denies any abdominal pain, hematuria, or dysuria. He denies any weakness on one side. He denies any dysphagia, arthralgias, myalgias, rashes, or lesions. He does report confusion when taking his sertraline and disulfiram. He does currently report that his confusion has improved. PHYSICAL EXAMINATION GENERAL: At this time, Mr. Willams is a 52-year-old male. He appears well, alert and oriented to place, confused to time and situation. Sitting on the stretcher in the emergency room. He does not appear to be in any acute distress. VITAL SIGNS: Blood pressure 157/98, temperature was 98.1, heart rate 65, respirations 16, O2 saturation 98% on room air. HEENT: Head is atraumatic and normocephalic. Eyes: EOMs intact. Sclerae anicteric and not pale. Oral mucosa appears to be moist. NECK: Supple. LUNGS: Clear to auscultation bilaterally. No wheezes, rales, or rhonchi. CARDIAC: S1 and S2. Regular, rate, and rhythm. No murmurs, rubs, or gallops. ABDOMEN: Soft and nontender. Bowel sounds are present x4. EXTREMITIES: Pulses are +2 bilaterally. He is able to move all 4 extremities with 5/5 strength. NEUROLOGIC: He is awake, alert, and oriented to place; mild confusion to time and date. His speech is clear. Tongue is midline. There is no gross focal deficit. SKIN: Intact. DIAGNOSTIC STUDIES AND LABORATORY DATA: WBCs are 7.9, RBCs 5.22, hemoglobin 14.1, hematocrit 43, platelet count 293. Sodium 134, potassium 4.6, chloride 103, carbon- dioxide was 22, anion gap was 9, BUN was 15, glucose was 116, lactic acid 0.9. Ammonia level was 67. ASTs were 26, ALTs were 30, alkaline phosphate was 61, lactic acid was 0.9. Urine color was yvrose, cloudy, pH was 5.0, specific gravity 1.024. Urine protein was 1+. Urine ketones, blood, nitrites, bilirubin were negative. Urobilinogen was positive. Urine leukocyte esterase was negative. Wbc's are trace, rbc's are trace, squamous epithelial cells were present, urine bacteria was absent, hyaline casts were present. Urine glucose was negative. Serum alcohol was less than 10. CT of the brain showed no acute intracranial pathology. He had an electrocardiogram, which showed sinus rhythm at a rate of 82, no ST changes. ASSESSMENT AND PLAN: Mr. Willams is a 52-year-old male that presented to the emergency room with a complaint of confusion when taking sertraline and disulfiram. We were asked to see and evaluate him due to his confusion. He will be admitted under observation for: 1. Altered mental status. I suspect that this could be related to elevated ammonia level. It also could be related to recently starting sertraline and disulfiram. I will stop sertraline and disulfiram at this time. I will place him on lactulose for the elevated ammonia level at 15 mL t.i.d. The patient and family have both reported that his confusion has improved since stopping the medications at home. We will monitor him overnight. 2. Alcohol abuse. I will stop his disulfiram and start him on naltrexone 50 mg p.o. daily to assist in helping him refrain from alcohol ingestion. I will also continue his folic acid, magnesium oxide, and thiamine. 3. Elevated ammonia level. We will continue lactulose 15 mL t.i.d. 4. FEN. He can have a regular diet. 5. Code status is full code. 6. DVT prophylaxis. I will encourage ambulation. TIME SPENT: Time spent on this admission was 60 minutes, greater than half that time was spent [id number] with the patient obtaining my history and physical through interpretation service, quality assurance auditor . The other half the time was spent going over my plan of care and implementing my plan of care. I have discussed with my attending, Dr. Lisa Iqbal, she is in agreement with my plan. RACHNA BONILLA, TECHNICAL MAINTENANCE TECHNICIAN [id number]/CPS #: [id number] RANDAL
[2018-04-09] MEDS: Lactulose* 15 ML UDC PO SCH (08:58)
[2018-04-09] MEDS: Naltrexone TAB* 50 MG TAB PO SCH (08:58)
[2018-04-09] MEDS ORDERED: Folic Acid TAB* 1 MG PO SCH (09:00)
[2018-04-09] MEDS ORDERED: Thiamine TAB* 100 MG TAB PO SCH (09:00)
[2018-04-09] MEDS ORDERED: Sertraline* 50 MG TAB PO SCH (09:00)
[2018-04-09] MEDS ORDERED: Magnesium Oxide TAB* 400 MG PO SCH (09:00)
--- NOTE | 2018-04-09 11:06 | PN ---
Subjective Date of Service: 04/09/18 Interval History: Interviewed at the bedside using grill attendant service with grill attendant [id number]. Patient reports no chest pain or shortness of breath. reports no confusion, dizziness or shaking episodes. Denies abd pain n/v/d. patient is able to state he is in the hospital and the year is 2019. feels steady ambulating to the bathroom Family History: Unchanged from Admission Social History: Unchanged from Admission Past Medical History: Unchanged from Admission Objective Active Medications: Acetaminophen (Tylenol Tab*) 650 mg PO Q4H PRN PRN Reason: FEVER/PAIN Folic Acid (Folvite Tab*) 1 mg PO DAILY [facility] Last Admin: 04/09/18 08:58 Dose: 1 mg Lactulose (Lactulose*) 15 ml PO TID [facility] Last Admin: 04/09/18 08:58 Dose: 15 ml Magnesium Oxide (Magox 400 Tab*) 400 mg PO DAILY [facility] Last Admin: 04/09/18 08:58 Dose: 400 mg Naltrexone HCl (Naltrexone Tab*) 50 mg PO DAILY [facility]; Protocol Last Admin: 04/09/18 08:58 Dose: 50 mg Thiamine HCl (Vitamin B-1 Tab*) 100 mg PO DAILY [facility] Last Admin: 04/09/18 08:58 Dose: 100 mg Vital Signs - 8 hr 04/09/18 08:15 Temperature 98.3 F Pulse Rate 78 Respiratory 16 Rate Blood Pressure 150/85 (mmHg) O2 Sat by Pulse 99 Oximetry Oxygen Devices in Use Now: None Appearance: appers comfortable resting in bed. no acute distress Eyes: No Scleral Icterus Ears/Nose/Mouth/Throat: Clear Oropharnyx, Mucous Membranes Moist Neck: NL Appearance and Movements; NL JVP, Trachea Midline Respiratory: Symmetrical Chest Expansion and Respiratory Effort, Clear to Auscultation Cardiovascular: NL Sounds; No Murmurs; No JVD, No Edema Abdominal: NL Sounds; No Tenderness; No Distention Extremities: No Edema, No Clubbing, Cyanosis Skin: No Rash or Ulcers Neurological: Alert and Oriented x 3 Nutrition: Taking PO's Result Diagrams: 04/08/18 12:03 04/08/18 12:03 Additional Lab and Data: Lab Results 04/08/18 04/08/18 04/08/18 Range/Units 12:03 12:03 12:03 WBC 7.9 (3.5-10.8) 10^3/ul RBC 5.22 (4.00-5.40) 10^6/ul Hgb 14.1 (14.0-18.0) g/dl Hct 43 (42-52) % MCV 82 (80-94) fL MCH 27 (27-31) pg MCHC 33 (31-36) g/dl RDW 13 (10.5-15) % Plt Count 293 (150-450) 10^3/ul MPV 7.8 (7.4-10.4) fL Neut % (Auto) 65.5 % Lymph % (Auto) 25.8 % [place] % (Auto) 6.0 % Eos % (Auto) 1.5 % Baso % (Auto) 1.2 % Absolute Neuts (auto) 5.2 (1.5-7.7) 10^3/ul Absolute Lymphs (auto) 2.0 (1.0-4.8) 10^3/ul Absolute Monos (auto) 0.5 (0-0.8) 10^3/ul Absolute Eos (auto) 0.1 (0-0.6) 10^3/ul Absolute Basos (auto) 0.1 (0-0.2) 10^3/ul Absolute Nucleated RBC 0 10^3/ul Nucleated RBC % 0.1 Sodium 134 L (135-145) mmol/L Potassium 4.6 (3.5-5.0) mmol/L Chloride 103 (101-111) mmol/L Carbon Dioxide 22 (22-32) mmol/L Anion Gap 9 (2-11) mmol/L BUN 15 (6-24) mg/dL Creatinine 0.93 (0.67-1.17) mg/dL Est GFR ( Amer) 103.2 (>60) Est GFR (Non-Af Amer) 85.3 (>60) BUN/Creatinine Ratio 16.1 (8-20) Glucose 116 H (70-100) mg/dL Lactic Acid 0.9 (0.5-2.0) mmol/L Calcium 9.8 (8.6-10.3) mg/dL Total Bilirubin 0.80 (0.2-1.0) mg/dL AST 26 (13-39) U/L ALT 30 (7-52) U/L Alkaline Phosphatase 61 (34-104) U/L Troponin I 0.00 (<0.04) ng/mL Total Protein 7.8 (6.4-8.9) g/dL Albumin 4.6 (3.2-5.2) g/dL Globulin 3.2 (2-4) g/dL Albumin/Globulin Ratio 1.4 (1-3) Urine Color Urine Appearance Urine pH (5-9) Ur Specific [place] (1.010-1.030) Urine Protein (Negative) Urine Ketones (Negative) Urine Blood (Negative) Urine Nitrate (Negative) Urine Bilirubin (Negative) Urine Urobilinogen (Negative) Ur Leukocyte Esterase (Negative) Urine WBC (Auto) (Absent) Urine RBC (Auto) (Absent) Ur Squamous Epith Cells (Absent) Urine Bacteria (Absent) Hyaline Casts (Absent) Urine Glucose (Negative) Serum Alcohol < 10 (<10) mg/dL 04/08/18 Range/Units 12:21 WBC (3.5-10.8) 10^3/ul RBC (4.00-5.40) 10^6/ul Hgb (14.0-18.0) g/dl Hct (42-52) % MCV (80-94) fL MCH (27-31) pg MCHC (31-36) g/dl RDW (10.5-15) % Plt Count (150-450) 10^3/ul MPV (7.4-10.4) fL Neut % (Auto) % Lymph % (Auto) % [place] % (Auto) % Eos % (Auto) % Baso % (Auto) % Absolute Neuts (auto) (1.5-7.7) 10^3/ul Absolute Lymphs (auto) (1.0-4.8) 10^3/ul Absolute Monos (auto) (0-0.8) 10^3/ul Absolute Eos (auto) (0-0.6) 10^3/ul Absolute Basos (auto) (0-0.2) 10^3/ul Absolute Nucleated RBC 10^3/ul Nucleated RBC % Sodium (135-145) mmol/L Potassium (3.5-5.0) mmol/L Chloride (101-111) mmol/L Carbon Dioxide (22-32) mmol/L Anion Gap (2-11) mmol/L BUN (6-24) mg/dL Creatinine (0.67-1.17) mg/dL Est GFR ( Amer) (>60) Est GFR (Non-Af Amer) (>60) BUN/Creatinine Ratio (8-20) Glucose (70-100) mg/dL Lactic Acid (0.5-2.0) mmol/L Calcium (8.6-10.3) mg/dL Total Bilirubin (0.2-1.0) mg/dL AST (13-39) U/L ALT (7-52) U/L Alkaline Phosphatase (34-104) U/L Troponin I (<0.04) ng/mL Total Protein (6.4-8.9) g/dL Albumin (3.2-5.2) g/dL Globulin (2-4) g/dL Albumin/Globulin Ratio (1-3) Urine Color [place] Urine Appearance Cloudy Urine pH 5.0 (5-9) Ur Specific [place] 1.024 (1.010-1.030) Urine Protein 1+(30 mg/dl) A (Negative) Urine Ketones Negative (Negative) Urine Blood Negative (Negative) Urine Nitrate Negative (Negative) Urine Bilirubin Negative (Negative) Urine Urobilinogen Positive A (Negative) Ur Leukocyte Esterase Negative (Negative) Urine WBC (Auto) Trace(0-5/hpf) (Absent) Urine RBC (Auto) Trace(0-2/hpf) (Absent) Ur Squamous Epith Cells Present A (Absent) Urine Bacteria Absent (Absent) Hyaline Casts Present A (Absent) Urine Glucose Negative (Negative) Serum Alcohol (<10) mg/dL Assess/Plan/Problems-Billing Assessment: Mr. Willams was a 52 y.o male with pmhx of etoh abuse who stopped drinking almost 2 months ago who was recently started on zoloft and disulfiram with alcohol addiction. - Patient Problems (1) Altered mental state Current Visit: No Status: Acute Code(s): R41.82 - ALTERED MENTAL STATUS, UNSPECIFIED SNOMED Code(s): 791277286 Comment: - suspect this could be related to disulfiram and zoloft- as patient reports that he feels dizzy and shaky when taking these medications and become confused - it could also be caused from elevated ammonia level - will stop zoloft and disulfiram - will start naltrexone 50 mg po daily (2) Increased ammonia level Current Visit: No Status: Acute Code(s): R79.89 - OTHER SPECIFIED ABNORMAL FINDINGS OF BLOOD CHEMISTRY SNOMED Code(s): 339972726 Comment: will continue on lactulose 15 ml BID metantion seem more clear today (3) History of ETOH abuse Current Visit: Yes Status: Acute Code(s): Z87.898 - PERSONAL HISTORY OF OTHER SPECIFIED CONDITIONS SNOMED Code(s): 425524983 (4) DVT prophylaxis Current Visit: No Status: Acute Code(s): DSH6302 - SNOMED Code(s): 723049426 Comment: -Continue Heparin [id number] Status and Disposition: discharge home
[2018-04-09 11:32] VITALS: BP 152/86
== END 2018-04-09 14:40 | disposition home or self-care (01) ==
LOC: ED 11:12 → MED 17:03
PROVIDERS: ADMIT Hospitalist; ATTEND Hospitalist
DX: R41.82 Altered mental status, unspecified (principal); R79.89 Other specified abnormal findings of blood chemistry; F10.10 Alcohol abuse, uncomplicated
CPT/HCPCS: 36415; 70450; 80053; 80320; 81003; 81015; 82140; 83605; 84484; 85025; 87086; 93005; 96365; 96375; 99284; A9270-GY; G0378; G0480; J3411